=== PATIENT | female | born 1995 | race Caucasian/White ===

== ENCOUNTER 2017-10-05 09:22 | Inpatient (IN) ==
[2017-10-05] MEDS ORDERED: BUTORPHANOL 2 MG/ML VIAL IV PRN (10:28)
[2017-10-05] MEDS ORDERED: ONDANSETRON 4 MG/2 ML VIAL IV PRN ×2 (10:28→15:24)
[2017-10-05] MEDS ORDERED: OXYTOCIN/LR 20 UNIT/1,000 ML BAG IV SCH (10:30)
[2017-10-05] MEDS ORDERED: LACTATED RINGERS 1,000 ML IV SCH (10:30)
[2017-10-05] MEDS ORDERED: OXYTOCIN/LR 20 UNIT/1,000 ML BAG IV ONE ×2 (10:42→15:24)
[2017-10-05 11:37] LABS: Alanine Aminotransferase 16 U/L (13-56); Albumin 2.7 G/DL (3.4-5.0); Alkaline Phosphatase 189 U/L (45-117); Aspartate Amino Transferase 14 U/L (0-37); Bilirubin,Total < 0.39 MG/DL (0.2-1.0); Blood Urea Nitrogen 7 MG/DL (7-18); Calcium 8.6 MG/DL (8.5-10.1); Glucose 62 MG/DL (74-106); Osmolality,Calculated 268.8 MOS/KG (273-304); Potassium 4.1 MMOL/L (3.5-5.1); Sodium 137 MMOL/L (136-145); Total Protein 7.2 G/DL (6.4-8.3)
[2017-10-05 12:24] LABS: Basophils % 0.1 % (0.0-0.8); Eosinophils % 0.3 % (0.00-10.9); Hematocrit 33.1 VOL% (35.7-47.0); Immature Granulocytes % 0.4 %; Immature Granulocytes Absolute 0.05 #; Lymphocytes # 1.8 10*3/uL (1.4-4.0); Lymphocytes % 13.2 % (21.3-54.2); Mean Corpuscular HGB Conc 33.2 GM/DL (32-36); Mean Corpuscular Hemoglobin 28 PG (27-34); Mean Corpuscular Volume 84.2 FL (87-102); Mean Platelet Volume 10.9 FL (9.6-12.0); Monocytes % 7.7 % (1.7-12.7); Neutrophils # 10.6 10*3/uL (1.4-7.4); Neutrophils % 78.3 % (38.7-73.9); Platelet Count 202 T/CUMM (130-400); Red Blood Count 3.93 MC/CUMM (3.8-5.5); Red Cell Distribution Width 13.1 % (9.3-17.3); White Blood Count 13.5 T/CUMM (4-12)
[2017-10-05] MEDS ORDERED: LIDOCAINE 1% 50 ML VIAL ONE (13:00)
[2017-10-05] MEDS ORDERED: miSOPROStol 200 MCG TABLET ONE (13:01)
[2017-10-05] MEDS ORDERED: METHYLERGONOVINE 0.2 MG/1 ML AMP ONE (13:01)
[2017-10-05] MEDS ORDERED: BUTORPHANOL 1 MG/ML VIAL ONE (13:01)
[2017-10-05] MEDS ORDERED: TERBUTALINE 1 MG/1 ML VIAL SUBCUT ONE (14:57)
[2017-10-05] MEDS ORDERED: HYDROCORTISONE 2.5% RECTAL CREAM 30 GM TUBE TOP PRN (15:24)
[2017-10-05] MEDS ORDERED: DIPH/TET/ACEL PERT BOOSTER VACCINE 0.5 ML VIAL IM ONE (15:24)
[2017-10-05] MEDS ORDERED: BISACODYL 10 MG SUPP RECTAL PRN (15:24)
[2017-10-05] MEDS ORDERED: WITCH HAZEL PADS 100/JAR TOP PRN (15:24)
[2017-10-05] MEDS ORDERED: LANOLIN 50% CREAM 0.3 OZ TUBE TOP PRN (15:24)
[2017-10-05] MEDS ORDERED: BENZOCAINE 20%/MENTHOL 0.5% SPRAY 56 GM CAN TOP PRN (15:24)
[2017-10-05] MEDS ORDERED: ACETAMINOPHEN 325 MG TABLET PO PRN (15:24)
[2017-10-05] MEDS ORDERED: RHO(D) IMMUNE GLOBULIN 300 MCG SYRINGE IM ONE (15:24)
[2017-10-05] MEDS ORDERED: oxyCODONE/ACETAMINOPHEN 5-325 MG TABLET PO PRN ×2 (15:24)
[2017-10-05] MEDS ORDERED: IBUPROFEN 800 MG TABLET PO PRN (15:24)
[2017-10-05] MEDS ORDERED: MEASLES/MUMPS/RUBELLA VACCINE 0.5 ML VIAL SUBCUT ONE (15:24)
[2017-10-05 15:55] LABS: Cord Arterial Blood HCO3 13.2 MMOL/L
[2017-10-05 15:58] LABS: Cord Venous Blood HCO3 20.9 MMOL/L; Cord Venous Blood PO2 4.1 MMHG
[2017-10-05] MEDS: DOCUSATE SODIUM 100 MG CAPSULE PO SCH (22:03)
[2017-10-06 06:51] LABS: Basophils # 0.1 10*3/uL (0.0-0.2); Basophils % 0.3 % (0.0-0.8); Eosinophils % 0.1 % (0.00-10.9); Hematocrit 29.5 VOL% (35.7-47.0); Immature Granulocytes % 0.6 %; Immature Granulocytes Absolute 0.12 #; Lymphocytes # 1.8 10*3/uL (1.4-4.0); Lymphocytes % 9.4 % (21.3-54.2); Mean Corpuscular HGB Conc 33.9 GM/DL (32-36); Mean Corpuscular Hemoglobin 28 PG (27-34); Mean Corpuscular Volume 83.6 FL (87-102); Mean Platelet Volume 10.5 FL (9.6-12.0); Monocytes # 1.4 10*3/uL (0.11-0.8); Monocytes % 7.2 % (1.7-12.7); Neutrophils # 15.7 10*3/uL (1.4-7.4); Neutrophils % 82.4 % (38.7-73.9); Platelet Count 204 T/CUMM (130-400); Red Blood Count 3.53 MC/CUMM (3.8-5.5); Red Cell Distribution Width 13.1 % (9.3-17.3); White Blood Count 19.1 T/CUMM (4-12)
[2017-10-06 07:39] LABS: Band Neutrophils 3 % (0-10); Hypochromasia 1+; Lymphocytes 10 % (20-55); Segmented Neutrophils 82 % (50-85); Total Cells Counted 100
[2017-10-06 07:40] LABS: Microcytosis 1+; Ovalocytes Slight; Platelet Estimate Normal; Tear Drop Cells Slight
[2017-10-06] MEDS: MULTIVITAMIN (PRENATAL) TABLET PO SCH (09:43)
[2017-10-06] MEDS: DOCUSATE SODIUM 100 MG CAPSULE PO SCH ×2 (09:43→22:01)
[2017-10-07 07:36] VITALS: BP 108/67
[2017-10-07] MEDS: MULTIVITAMIN (PRENATAL) TABLET PO SCH (09:23)
[2017-10-07] MEDS: DOCUSATE SODIUM 100 MG CAPSULE PO SCH (09:24)
== END 2017-10-07 11:35 | disposition home or self-care (01) | DRG 775 ==
LOC: N.LDOUT 10:16 → N.LD 10:18 → N.OB 21:00
PROVIDERS: ADMIT Specialist; ATTEND Specialist

== ENCOUNTER 2019-11-11 15:21 | Inpatient (IN) ==
[2019-11-12] MEDS ORDERED: LACTATED RINGERS 1,000 ML IV PRN (18:00)
[2019-11-12] MEDS ORDERED: BUTORPHANOL 1 MG/ML VIAL IV PRN (18:14)
[2019-11-12] MEDS ORDERED: ONDANSETRON 4 MG/2 ML VIAL IV PRN (18:14)
[2019-11-12] MEDS ORDERED: MEPERIDINE 50 MG/1 ML VIAL IV PRN (18:14)
[2019-11-12] MEDS ORDERED: BUTORPHANOL 2 MG/ML VIAL IV PRN (18:14)
[2019-11-12 18:42] LABS: Basophils % 0.4 % (0.0-0.8); Eosinophils # 0.1 10*3/uL (0.0-0.87); Eosinophils % 0.7 % (0.00-10.9); Hematocrit 30.9 VOL% (35.7-47.0); Hemoglobin 9.8 GM/DL (12.0-16.0); Immature Granulocytes % 0.4 %; Immature Granulocytes Absolute 0.04 #; Lymphocytes # 2.1 10*3/uL (1.4-4.0); Lymphocytes % 21.6 % (21.3-54.2); Mean Corpuscular HGB Conc 31.7 GM/DL (32-36); Mean Corpuscular Volume 82.8 FL (87-102); Mean Platelet Volume 10.2 FL (9.6-12.0); Neutrophils % 67.9 % (38.7-73.9); Platelet Count 248 T/CUMM (130-400); Red Blood Count 3.73 MC/CUMM (3.8-5.5); Red Cell Distribution Width 12.9 % (9.3-17.3); White Blood Count 9.7 T/CUMM (4-12)
[2019-11-12 19:03] LABS: Alanine Aminotransferase 20 U/L (13-56); Albumin 2.7 G/DL (3.4-5.0); Alkaline Phosphatase 185 U/L (45-117); Aspartate Amino Transferase 14 U/L (0-37); Bilirubin,Total < 0.39 MG/DL (0.2-1.0); Blood Urea Nitrogen 10 MG/DL (7-18); Calcium 8.4 MG/DL (8.5-10.1); Estimated Glom Filtration Rate 133 ML/MIN; Glucose 83 MG/DL (74-106); Osmolality,Calculated 270.8 MOS/KG (273-304); Total Protein 6.5 G/DL (6.4-8.3)
[2019-11-12] MEDS ORDERED: OXYTOCIN/LR 20 UNIT/1,000 ML BAG IV SCH (20:00)
[2019-11-12] MEDS ORDERED: AMPICILLIN INJ 2,000 MG in SODIUM CHLORIDE 0.9% 100 ML IV ONE (20:00)
[2019-11-12] MEDS: LACTATED RINGERS 1,000 ML IV PRN (23:06)
[2019-11-12] MEDS ORDERED: SODIUM CHLORIDE 0.9% 1,000 ML IV ONE (23:45)
[2019-11-12] MEDS: AMPICILLIN INJ 1,000 MG in SODIUM CHLORIDE 0.9% 100 ML IV SCH (23:58)
[2019-11-13] MEDS: LACTATED RINGERS 1,000 ML IV PRN (05:06)
[2019-11-13] MEDS: AMPICILLIN INJ 1,000 MG in SODIUM CHLORIDE 0.9% 100 ML IV SCH ×2 (06:00→06:01)
[2019-11-13] MEDS ORDERED: TRANEXAMIC ACID 1,000 MG/10 ML VIAL ONE (09:26)
[2019-11-13] MEDS ORDERED: CARBOPROST TROMETHAMINE 250 MCG/ML AMP IM ONE (09:26)
[2019-11-13] MEDS ORDERED: METHYLERGONOVINE 0.2 MG/1 ML AMP ONE (09:26)
[2019-11-13] MEDS ORDERED: miSOPROStoL 200 MCG TABLET ONE (09:26)
[2019-11-13] MEDS ORDERED: LIDOCAINE 1% 50 ML VIAL ONE (09:27)
[2019-11-13] MEDS ORDERED: DIPH/TET/ACEL PERT BOOSTER VACCINE 0.5 ML VIAL IM ONE (12:49)
[2019-11-13] MEDS ORDERED: LANOLIN 50% CREAM 0.3 OZ TUBE TOP PRN (12:49)
[2019-11-13] MEDS ORDERED: IBUPROFEN 800 MG TABLET PO PRN (12:49)
[2019-11-13] MEDS ORDERED: WITCH HAZEL PADS 100/JAR TOP PRN (12:49)
[2019-11-13] MEDS ORDERED: OXYTOCIN/LR 20 UNIT/1,000 ML BAG IV ONE (12:49)
[2019-11-13] MEDS ORDERED: MEASLES/MUMPS/RUBELLA VACCINE 0.5 ML VIAL SUBCUT ONE (12:49)
[2019-11-13] MEDS ORDERED: ONDANSETRON 4 MG/2 ML VIAL IV PRN (12:49)
[2019-11-13] MEDS ORDERED: RHO(D) IMMUNE GLOBULIN 300 MCG SYRINGE IM ONE (12:49)
[2019-11-13] MEDS ORDERED: BISACODYL 10 MG SUPP RECTAL PRN (12:49)
[2019-11-13] MEDS ORDERED: ACETAMINOPHEN 325 MG TABLET PO PRN (12:49)
[2019-11-13] MEDS ORDERED: oxyCODONE/ACETAMINOPHEN 5-325 MG TABLET PO PRN ×2 (12:49)
[2019-11-13] MEDS ORDERED: BENZOCAINE 20%/MENTHOL 0.5% SPRAY 56 GM CAN TOP PRN (12:49)
[2019-11-13] MEDS ORDERED: HYDROCORTISONE 2.5% RECTAL CREAM 30 GM TUBE TOP PRN (12:49)
[2019-11-13] MEDS: DOCUSATE SODIUM 100 MG CAPSULE PO SCH (20:48)
[2019-11-14 05:37] LABS: Basophils % 0.3 % (0.0-0.8); Eosinophils # 0.1 10*3/uL (0.0-0.87); Hemoglobin 8.7 GM/DL (12.0-16.0); Immature Granulocytes % 0.5 %; Immature Granulocytes Absolute 0.05 #; Lymphocytes % 18.2 % (21.3-54.2); Mean Corpuscular HGB Conc 32.2 GM/DL (32-36); Mean Corpuscular Volume 83.6 FL (87-102); Mean Platelet Volume 10.5 FL (9.6-12.0); Monocytes % 7.9 % (1.7-12.7); Neutrophils % 72.1 % (38.7-73.9); Platelet Count 215 T/CUMM (130-400); Red Blood Count 3.23 MC/CUMM (3.8-5.5)
[2019-11-14] MEDS: DOCUSATE SODIUM 100 MG CAPSULE PO SCH ×2 (09:35→20:26)
[2019-11-15 07:26] VITALS: BP 104/57
[2019-11-15] MEDS: DOCUSATE SODIUM 100 MG CAPSULE PO SCH (10:35)
[2019-11-15] MEDS ORDERED: MEASLES/MUMPS/RUBELLA VACCINE 0.5 ML VIAL SUBCUT ONE (12:08)
== END 2019-11-15 13:15 | disposition home or self-care (01) | DRG 807 ==
LOC: N.LDOUT 15:21 → N.LD 15:24 → N.OB 11-13 12:19
PROVIDERS: ADMIT Specialist; ATTEND Specialist